=== PATIENT | female | born 1960 | race Caucasian/White ===

== ENCOUNTER 2017-03-10 09:37 | Day surgery (SDC) | payer BC ==
[2017-03-10] MEDS ORDERED: MIDAZOLAM 1 MG/ML 2 ML INJ ×2 (11:43)
[2017-03-10] MEDS ORDERED: FENTAnyl 50 MCG/ML VIAL (11:43)
== END 2017-03-10 13:48 | disposition home or self-care (01) ==
LOC: GIL 09:37
DX: Z12.11 Encounter for screening for malignant neoplasm of colon (principal); D12.2 Benign neoplasm of ascending colon; K64.8 Other hemorrhoids
CPT/HCPCS: 45380; 82962; 88305